=== PATIENT | female | born 1955 | race Two or more races ===

== ENCOUNTER 2024-02-05 09:27 | Inpatient (IN) | payer OTHER ==
[~2024-02-05] VITALS: Ht 180.3 cm; Wt 52.2 kg
[2024-02-05] MEDS ORDERED: PIPERACILLIN/TAZOBACTAM SODIUM 3.375 GM VIAL IV ONE (10:15)
[2024-02-05] MEDS ORDERED: 0.9 % SODIUM CHLORIDE 1,000 ML IV SCH ×2 (10:15→18:00)
[2024-02-05] MEDS ORDERED: CARVEDILOL25 M1 (10:20)
[2024-02-05] MEDS ORDERED: HYDRALAZINE HCL50 MG (10:21)
[2024-02-05] MEDS ORDERED: FOLIC ACID1 MG (10:21)
[2024-02-05] MEDS ORDERED: IRBESARTAN300 MG (10:21)
[2024-02-05] MEDS ORDERED: FUROSEMIDE20 MG (10:21)
[2024-02-05] MEDS ORDERED: ROSUVASTATIN CA10 MG (10:21)
[2024-02-05] MEDS ORDERED: FAMOTIDINE40 MG (10:21)
[2024-02-05] MEDS ORDERED: SPIRONOLACTONE25 MG (10:21)
--- NOTE | 2024-02-05 10:22 | NUR ---
PTE ALERTA STEPHANY AL MOMENTO NO VERBALIZA EMT REFIERE QUE LOS ACTIVARON POR "DESORIENTASION", "UTI" Y ULCERAS SACRALES. PTE VIENE CON [place] DEL [place]. EMT REFIEREN QUE PTE VIENE KAY SIN PERSONAL DEL HOGAR Y MARLYN FAMILIARES LE VERBALIZARON QUE NO VIENEN A ADAM A LA PTE. AL MOMENTO DE UBICAR A LA PTE, SE OBSERVA ULCERA SACRAL ESTADIO 4 CON OLOR FETIDO. PTE CON AMPUTACION BILATERAL.
[2024-02-05] MEDS ORDERED: ACETAMINOPHEN 650 MG SUPP.RECT RECTAL ONE (10:45)
[2024-02-05 10:46] LABS: HEMATOCRIT 28.1 % (36.0-45.00); MEAN CELL VOLUME 74.7 fL (80.00-100.00); MEAN CORPUSCULAR HEMOGLOBIN 23.9 pg (27.00-32.0); PLATELET COUNT 450 K/uL (150-450); RED BLOOD COUNT 3.76 M/uL (4.00-6.00); RED CELL DISTRIBUTION WIDTH 15.9 % (11.5-14.5)
[2024-02-05 10:48] LABS: ERYTHROCYTE SEDIMENTATION RATE > 130 mm/hr
[2024-02-05 10:58] LABS: INR 1.14; PARTIAL THROMBOPLASTIN TIME 26.8 SECONDS (22.0-34.0); PROTHROMBIN TIME 11.9 SECONDS (9.0-11.5)
[2024-02-05 11:04] LABS: ALBUMIN 1.5 gm/dL (3.4-5.0); BILIRUBIN TOTAL 0.32 mg/dL (0.3-1.2); CALCIUM 9.5 mg/dL (8.5-10.1); CREATININE SERUM 1.25 mg/dL (0.55-1.02); GFR 42.75; GLOBULINA 5.6 G/DL (2.4-3.5); POTASSIUM 4.61 mEq/L (3.5-5.1); TOTAL PROTEIN 7.1 gm/dL (6.4-8.2)
[2024-02-05 11:13] LABS: C-REACTIVE PROTEIN 18.3 MG/DL (0.00-0.29)
--- NOTE | 2024-02-05 11:42 | NUR ---
FEMINA ALERTA CON POCA ARTICULACION VERBAL SE UBICA EN UNIDAD DE ICU-2 CAMA #3 Y SE CONECTA A MONITOR CARDIACO Y OXIMETRIA DE PULSO. SE OBSERVA EXTREMIDAD SUPERIOR DERECHA CON EDEMA. VENOPUNCION DE AMBULANCIA PATENTE BRANDO DE EDEMA Y ERITEMA. SE COLECTAN MUESTRAS DE LABORATORIO BAJO MEDIDAS ASEPTICAS. ABDOMEN DEPRESIBLE AL TACTO CON PERISTALSIS PRESENTE. PTE CON ULCERA SACRAL ESTADIO 4, ULCERA EN CADERA Y EN GLUTEO. PERSONAL DE SKIN TEAM JUNTO CON EL DR BEJARANO LEE EVALUAN ULCERAS Y REALIZAN LIMPIEZA Y CUIDADO DE LAS MISMAS. COLOCAN VENDAJES LIMPIOS Y SECOS. SE REALIZA CAMBIO DE SONDA URINARIA CASEY ORDEN MEDICA SIGUIENDO MEDIDAS ESTERILES. PTE CON AMPUTACION BILATERAL EN EXTREMIDADES INFERIORES. SE REALIZA EKG Y SE PRESENTA A DR [place]. SE ADMINISTRAN MEDICAMENTOS CASEY ORDEN MEDICA. SE NOTIFICAN ABGS.
[2024-02-05] MEDS ORDERED: NOREPINEPHRINE BITARTRATE 8 MG in DEXTROSE 5 % IN WATER 250 ML IV SCH (11:45)
[2024-02-05 12:41] LABS: ABG PH 7.446 (7.35-7.45); ABG PO2 69.7 mmHg (80-100); BICARBONATE 20.9 mmol/l (23-25); SaO2 94.4 %; Tco2 21.8 mmol/l
[2024-02-05 13:25] LABS: URINE APPEARANCE Turbid; URINE BILIRRUBIN Negative (NEGATIVE); URINE BLOOD Trace; URINE COLOR Dark Yellow; URINE GLUCOSE Negative (NEGATIVE); URINE LEUKOCYTE Large; URINE NITRATE Negative
[2024-02-05 13:29] LABS: URINE EPITHELIAL CELLS 69.2 uL (0.0-38.8); URINE WBC 1526.1 uL (0.0-23.2)
[2024-02-05 13:42] LABS: URINE BACTERIA > 9821.5 uL (0.0-1933); URINE PROTEIN 100 (NEGATIVE)
[2024-02-05 13:44] LABS: URINE CRYSTALS FEW /HPF
[2024-02-05 15:12] LABS: allen test SATISFACTORY; o2 21 %; puncture site RADIAL LEFT
--- NOTE | 2024-02-05 15:19 | NUR ---
SE RECIBE PTE ALERTA, ORIENTADA EN PERSONA. EN CAMA BAJA CON BARANDAS ELEVADAS POR SEGURIDAD. CONECTADA A MONTIOR CARDIACO Y OXIMETRIA DE PULSO CONTINUA. CANALIZACION #20, PATENTE, BRANDO DE EDEMA Y ERITEMA, RECIBIENDO IV FLUIDS Y LEVOPHED 8MG/250ML A 20 MLS/HR. PTE CON RONDON DRENANDO A GRAVEDAD, ORINA AMRILLO INTENSO. PTE CON ULCERA SACRAL Y EN AMBAS CADERAS CON VENDAJES POR SKIN TEAM.
[2024-02-05] MEDS ORDERED: 0.9 % SODIUM CHLORIDE 1,000 ML IV ONE (17:45)
[2024-02-05] MEDS ORDERED: MEROPENEM 500 MG/VIAL VIAL IV SCH (17:45)
[2024-02-05] MEDS ORDERED: VANCOMYCIN HCL 1,000 MG VIAL IV SCH (17:46)
[2024-02-05] MEDS ORDERED: ONDANSETRON HCL 4 MG in 0.9 % SODIUM CHLORIDE 50 ML IV PRN (18:00)
[2024-02-05] MEDS ORDERED: ACETAMINOPHEN 500 MG GEL..CAP PO PRN (18:00)
[2024-02-05 18:51] LABS: MAGNESIUM 2.2 mg/dL (1.8-2.4); PHOSPHOROUS 4.4 mg/dL (2.5-4.9)
[2024-02-06] MEDS ORDERED: ATORVASTATIN CALCIUM 40 MG TABLET PO SCH (09:00)
[2024-02-06] MEDS ORDERED: FAMOTIDINE/PF 20 MG in 0.9 % SODIUM CHLORIDE 8 ML IV PUSH SCH (09:00)
[2024-02-06] MEDS ORDERED: ENOXAPARIN SODIUM 40 MG/0.4 ML SYRINGE SUBCUTANEO SCH (09:00)
[2024-02-06] MEDS ORDERED: NOREPINEPHRINE BITARTRATE 1 MG/ML AMPUL IV ONE (13:26)
[2024-02-06] MEDS ORDERED: MULTIVIT INFUSN,ADULT 4,VIT K 10 ML VIAL IV SCH (17:00)
[2024-02-06] MEDS ORDERED: AMINO ACIDS/PROTEIN HYDROLYS 30 ML BLIST.PACK PO SCH (17:00)
[2024-02-06] MEDS ORDERED: SOD FERRIC GLUC COMPLX/SUCROSE 62.5 MG in 0.9 % SODIUM CHLORIDE 50 ML IV SCH (17:00)
[2024-02-06] MEDS ORDERED: ALBUMIN HUMAN 100 ML VIAL IV SCH (21:00)
[2024-02-07 05:50] LABS: URINE APPEARANCE Turbid; URINE BILIRRUBIN Negative (NEGATIVE); URINE BLOOD Moderate; URINE COLOR Yellow; URINE GLUCOSE Negative (NEGATIVE); URINE LEUKOCYTE Large; URINE NITRATE Negative
[2024-02-07 06:23] LABS: URINE EPITHELIAL CELLS > 201.7 uL (0.0-38.8); URINE PROTEIN 100 (NEGATIVE); URINE WBC > 5548.3 uL (0.0-23.2)
[2024-02-07 06:24] LABS: URINE YEAST MODERATE /hpf
[2024-02-07 08:38] LABS: ALBUMIN 2.2 gm/dL (3.4-5.0); BILIRUBIN TOTAL 0.35 mg/dL (0.3-1.2); CREATININE SERUM 1.05 mg/dL (0.55-1.02); GFR 52.27; GLOBULINA 3.6 G/DL (2.4-3.5); MAGNESIUM 2.1 mg/dL (1.8-2.4); PHOSPHOROUS 4.5 mg/dL (2.5-4.9); TOTAL PROTEIN 5.8 gm/dL (6.4-8.2)
[2024-02-07 15:12] LABS: MEAN CORPUSCULAR HGB CONC 32.2 g/dl (32.0-36.0); PLATELET COUNT 232 K/uL (150-450); RED BLOOD COUNT 2.49 M/uL (4.00-6.00); RED CELL DISTRIBUTION WIDTH 15.6 % (11.5-14.5)
[2024-02-07 15:14] LABS: MEAN CORPUSCULAR HEMOGLOBIN 24.4 pg (27.00-32.0)
[2024-02-07] MEDS ORDERED: LOSARTAN POTASSIUM 50 MG TABLET PO SCH (15:18)
[2024-02-07 15:20] LABS: HEMATOCRIT 18.9 % (36.0-45.00)
[2024-02-07 15:21] LABS: HEMOGLOBIN 6.1 g/dL (12.0-15.00)
[2024-02-07] MEDS ORDERED: FAMOtidine 40 MG TABLET PO SCH (21:00)
[2024-02-07] MEDS ORDERED: MORPHINE SULFATE 4 MG/ML VIAL IV ONE (21:45)
[2024-02-08] MEDS ORDERED: RIVAROXABAN 10 MG TAB PO SCH (09:00)
[2024-02-08] MEDS ORDERED: INSULIN LISPRO 1,000 UNIT/10 ML UNITS SUBCUTANEO PRN (13:30)
[2024-02-08] MEDS ORDERED: SODIUM CHLORIDE 0.45 % 1,000 ML IV SCH (13:30)
[2024-02-08] MEDS ORDERED: DEXTROSE 50 % IN WATER 0.5 G/ML VIAL IV PRN (13:30)
[2024-02-08] MEDS ORDERED: hydrALAZINE HCL 20 MG VIAL IV PRN (13:45)
[2024-02-08] MEDS ORDERED: FUROsemide 20 MG/2 ML VIAL IV NR (14:15)
[2024-02-08] MEDS ORDERED: AZTREONAM 2,000 MG VIAL IV SCH (17:00)
[2024-02-08] MEDS ORDERED: CARVEDILOL 3.125 MG TABLET PO SCH (17:00)
[2024-02-08] MEDS ORDERED: Pregabalin 50 MG CAPSULE PO SCH (17:00)
[2024-02-08] MEDS ORDERED: CEFTAZIDIME/AVIBACTAM 1.25GM/100ML NSS PB IV SCH (17:00)
[2024-02-08] MEDS ORDERED: IRBESARTAN 300 MG TABLET PO SCH (17:00)
[2024-02-08] MEDS ORDERED: MEROPENEM 500 MG/VIAL VIAL IV SCH (18:00)
[2024-02-08 19:14] LABS: HEMOGLOBIN 10.2 g/dL (12.0-15.00); MEAN CELL VOLUME 77.2 fL (80.00-100.00); MEAN CORPUSCULAR HEMOGLOBIN 25.4 pg (27.00-32.0); MEAN CORPUSCULAR HGB CONC 32.9 g/dl (32.0-36.0); PLATELET COUNT 291 K/uL (150-450); RED BLOOD COUNT 4.02 M/uL (4.00-6.00)
[2024-02-08] MEDS ORDERED: POLYETHYLENE GLYCOL 3350 17 GM BLIST.PACK PO SCH (21:00)
[2024-02-08] MEDS ORDERED: INSULIN GLARGINE,HUM.REC.ANLOG 1,000 UNITS/10 ML UNITS SUBCUTANEO SCH (21:00)
[2024-02-09] MEDS ORDERED: FUROsemide 20 MG/2 ML VIAL IV SCH (09:00)
[2024-02-09] MEDS ORDERED: SODIUM CHLORIDE 0.45 % 1,000 ML IV SCH (14:00)
[2024-02-09 14:13] LABS: ABG PH 7.351 (7.35-7.45); ABG PO2 87.5 mmHg (80-100); ABG pCO2 32.2 mmHg (35-45); BASE EXCESS -6.9 mmol/l; BICARBONATE 17.4 mmol/l (23-25); SaO2 95.9 %; Tco2 18.4 mmol/l
[2024-02-09 14:14] LABS: allen test SATISFACTORY; o2 21 %; puncture site RADIAL RIGHT
[2024-02-09] MEDS ORDERED: INSULIN GLARGINE,HUM.REC.ANLOG 1,000 UNITS/10 ML UNITS SUBCUTANEO SCH (21:00)
[2024-02-10 07:35] LABS: HEMATOCRIT 31.4 % (36.0-45.00); HEMOGLOBIN 10.2 g/dL (12.0-15.00); MEAN CELL VOLUME 76.9 fL (80.00-100.00); MEAN CORPUSCULAR HGB CONC 32.4 g/dl (32.0-36.0); PLATELET COUNT 286 K/uL (150-450); RED BLOOD COUNT 4.08 M/uL (4.00-6.00); RED CELL DISTRIBUTION WIDTH 16.6 % (11.5-14.5)
[2024-02-10 08:10] LABS: ALBUMIN 3.1 gm/dL (3.4-5.0); BILIRUBIN TOTAL 0.44 mg/dL (0.3-1.2); CALCIUM 8.7 mg/dL (8.5-10.1); CREATININE SERUM 1.53 mg/dL (0.55-1.02); GFR 33.85; GLOBULINA 3.3 G/DL (2.4-3.5); POTASSIUM 4.83 mEq/L (3.5-5.1); TOTAL PROTEIN 6.4 gm/dL (6.4-8.2)
[2024-02-10] MEDS ORDERED: ISOSORBIDE MONONITRATE 30 MG TABLET PO NR (09:30)
[2024-02-10] MEDS ORDERED: hydrALAZINE HCL 20 MG VIAL IV SCH (12:00)
[2024-02-10] MEDS ORDERED: CARVEDILOL 3.125 MG TABLET PO SCH (17:00)
[2024-02-10] MEDS ORDERED: NIFEDIPINE 30 MG TAB.SA.OSM PO SCH (17:00)
[2024-02-11] MEDS ORDERED: ISOSORBIDE MONONITRATE 30 MG TABLET PO SCH (09:00)
[2024-02-11] MEDS ORDERED: Cyanocobalamin/Mecobalamin 1 TAB.SL SL SCH (09:00)
[2024-02-11] MEDS ORDERED: SOD FERRIC GLUC COMPLX/SUCROSE 125 MG in 0.9 % SODIUM CHLORIDE 100 ML IV SCH (09:00)
[2024-02-11 13:11] LABS: a:g ratio 1.1 (0.7-1.7); alpha 1 g 0.3 g/dL (0.0-0.4); alpha 2 0.9 g/dL (0.4-1.0); beta g 0.7 g/dL (0.7-1.3); gamma g 1.2 g/dL (0.4-1.8); kappa lambda r 1.03 (0.26-1.65); kappa light 132.7 mg/L (3.3-19.4); m spike Not Observed g/dL (Not Observed); prot total 6.3 g/dL (6.0-8.5)
[2024-02-11 18:33] LABS: CALCIUM 8.7 mg/dL (8.5-10.1); CREATININE SERUM 1.76 mg/dL (0.55-1.02); GFR 28.8; POTASSIUM 5.24 mEq/L (3.5-5.1)
[2024-02-12 07:09] LABS: BETA-2-MICROGLOBULINA 11.1 mg/L (0.6-2.4)
[2024-02-12 07:51] LABS: HEMATOCRIT 32.5 % (36.0-45.00); HEMOGLOBIN 10.5 g/dL (12.0-15.00); MEAN CELL VOLUME 77.6 fL (80.00-100.00); MEAN CORPUSCULAR HEMOGLOBIN 25.1 pg (27.00-32.0); MEAN CORPUSCULAR HGB CONC 32.3 g/dl (32.0-36.0); PLATELET COUNT 244 K/uL (150-450); RED BLOOD COUNT 4.18 M/uL (4.00-6.00); RED CELL DISTRIBUTION WIDTH 17.2 % (11.5-14.5)
[2024-02-12 15:07] LABS: alb 49.8 % (.); alp 2 4.9 % (.); alph 2.7 % (.); bet 24.8 % (.); gamma 17.8 % (.); prote 183.4 mg/dL (Not Estab.)
[2024-02-12] MEDS ORDERED: INSULIN GLARGINE,HUM.REC.ANLOG 1,000 UNITS/10 ML UNITS SUBCUTANEO SCH (21:00)
[2024-02-13 14:27] LABS: HEMATOCRIT 28.9 % (36.0-45.00); HEMOGLOBIN 9.4 g/dL (12.0-15.00); MEAN CELL VOLUME 78.8 fL (80.00-100.00); MEAN CORPUSCULAR HEMOGLOBIN 25.7 pg (27.00-32.0); MEAN CORPUSCULAR HGB CONC 32.6 g/dl (32.0-36.0); PLATELET COUNT 200 K/uL (150-450); RED BLOOD COUNT 3.67 M/uL (4.00-6.00); RED CELL DISTRIBUTION WIDTH 16.9 % (11.5-14.5)
[2024-02-13 14:57] LABS: ALBUMIN 1.7 gm/dL (3.4-5.0); BILIRUBIN TOTAL 0.22 mg/dL (0.3-1.2); CALCIUM 7.9 mg/dL (8.5-10.1); CREATININE SERUM 2.23 mg/dL (0.55-1.02); GFR 21.92; GLOBULINA 3.5 G/DL (2.4-3.5); POTASSIUM 5.29 mEq/L (3.5-5.1); TOTAL PROTEIN 5.2 gm/dL (6.4-8.2)
[2024-02-13] MEDS ORDERED: Pregabalin 50 MG CAPSULE PO SCH (17:00)
[2024-02-14 07:27] LABS: ALBUMIN 1.7 gm/dL (3.4-5.0); CALCIUM 7.4 mg/dL (8.5-10.1); CREATININE SERUM 1.83 mg/dL (0.55-1.02); GFR 27.53; PHOSPHOROUS 3.3 mg/dL (2.5-4.9); POTASSIUM 5.13 mEq/L (3.5-5.1)
[2024-02-14] MEDS ORDERED: 0.9 % SODIUM CHLORIDE 1,000 ML IV SCH (10:00)
[2024-02-15] MEDS ORDERED: VANCOMYCIN HCL 5 MG/ML REDILUIDO IV SCH (09:30)
[2024-02-15 09:38] LABS: HEMOGLOBIN 9.2 g/dL (12.0-15.00); MEAN CELL VOLUME 78.1 fL (80.00-100.00); MEAN CORPUSCULAR HEMOGLOBIN 25.6 pg (27.00-32.0); MEAN CORPUSCULAR HGB CONC 32.8 g/dl (32.0-36.0); PLATELET COUNT 144 K/uL (150-450); RED BLOOD COUNT 3.58 M/uL (4.00-6.00); RED CELL DISTRIBUTION WIDTH 17.6 % (11.5-14.5)
[2024-02-15 09:58] LABS: ALBUMIN 1.7 gm/dL (3.4-5.0); CALCIUM 7.3 mg/dL (8.5-10.1); CREATININE SERUM 1.68 mg/dL (0.55-1.02); GFR 30.39; PHOSPHOROUS 3.3 mg/dL (2.5-4.9); POTASSIUM 5.71 mEq/L (3.5-5.1)
[2024-02-15] MEDS ORDERED: AMINO ACIDS/PROTEIN HYDROLYS 30 ML BLIST.PACK PO SCH (17:00)
[2024-02-16] MEDS ORDERED: NOREPINEPHRINE BITARTRATE 1 MG/ML AMPUL IV STA (05:31)
[2024-02-16] MEDS ORDERED: NOREPINEPHRINE BITARTRATE 8 MG in DEXTROSE 5 % IN WATER 250 ML IV SCH (13:00)
[2024-02-16] MEDS ORDERED: SODIUM BICARBONATE 1 MEQ/ML DISP.SYRIN 50ML IV SCH (21:47)
[2024-02-17 07:06] LABS: HEMOGLOBIN 10.1 g/dL (12.0-15.00); MEAN CELL VOLUME 78.8 fL (80.00-100.00); MEAN CORPUSCULAR HEMOGLOBIN 24.8 pg (27.00-32.0); MEAN CORPUSCULAR HGB CONC 31.5 g/dl (32.0-36.0); RED BLOOD COUNT 4.06 M/uL (4.00-6.00); RED CELL DISTRIBUTION WIDTH 18.6 % (11.5-14.5)
[2024-02-17 07:30] LABS: ALBUMIN 1.7 gm/dL (3.4-5.0); CALCIUM 7.4 mg/dL (8.5-10.1); CREATININE SERUM 1.55 mg/dL (0.55-1.02); GFR 33.35; PHOSPHOROUS 4.6 mg/dL (2.5-4.9); POTASSIUM 5.62 mEq/L (3.5-5.1)
[2024-02-17 08:35] LABS: PLATELET COUNT 108 K/uL (150-450)
[2024-02-17] MEDS ORDERED: SODIUM BICARBONATE 50MEQ/50ML VIAL IV SCH (09:00)
[2024-02-17] MEDS ORDERED: SODIUM BICARBONATE 200 MEQ in DEXTROSE 5 % IN WATER 1,000 ML IV SCH ×2 (10:15→12:15)
[2024-02-17] MEDS ORDERED: RINGERS SOLUTION,LACTATED 500 ML IV ONE (10:30)
[2024-02-17] MEDS ORDERED: HYDROCORTISONE SODIUM SUCC/PF 50 MG/ML ML IV SCH (13:00)
[2024-02-17 13:01] LABS: ABG PH 7.104 (7.35-7.45); ABG PO2 91.5 mmHg (80-100); ABG pCO2 43.5 mmHg (35-45); BASE EXCESS -15.9 mmol/l; BICARBONATE 13.3 mmol/l (23-25); SaO2 91.6 %
[2024-02-17 13:02] LABS: Tco2 14.6 mmol/l; o2 100 %
[2024-02-17 13:03] LABS: allen test SATISFACTORY; puncture site RADIAL RIGHT
[2024-02-17 14:58] LABS: ABG PO2 66.2 mmHg (80-100); BASE EXCESS -14.8 mmol/l; BICARBONATE 13.6 mmol/l (23-25); SaO2 83.1 %; Tco2 14.9 mmol/l; allen test SATISFACTORY; o2 35 %; puncture site RADIAL RIGHT
[2024-02-17] MEDS ORDERED: CITRIC ACID/SODIUM CITRATE 30 ML BLIST.PACK PO SCH (17:00)
[2024-02-17] MEDS ORDERED: SODIUM POLYSTYRENE SULFONATE 30GM/8 TSP PO SCH (17:00)
[2024-02-17] MEDS ORDERED: ANIDULAFUNGIN 100 MG VIAL IV NR (17:45)
[2024-02-17] MEDS ORDERED: CEFIDEROCOL SULFATE TOSYLATE 1 GM VIAL IV SCH (21:00)
[2024-02-17] MEDS ORDERED: PANTOPRAZOLE SODIUM 40 MG/VIAL VIAL IV PUSH SCH (21:00)
[2024-02-18 07:37] LABS: PH,URINE 5.5; URINE APPEARANCE TURBID; URINE BILIRRUBIN NEGATIVE (NEGATIVE); URINE BLOOD LARGE; URINE COLOR YELLOW; URINE GLUCOSE NEGATIVE (NEGATIVE)
[2024-02-18 07:38] LABS: URINE LEUKOCYTE MODERATE; URINE NITRATE NEGATIVE; URINE PROTEIN 100 (NEGATIVE); URINE UROBILINOGEN 0.1 E.U./dl
[2024-02-18 07:40] LABS: URINE BACTERIA MANY; URINE CRYSTALS FEW /HPF; URINE EPITHELIAL CELLS 0-4 /HPF; URINE WBC LOADED /hpf
[2024-02-18 09:00] LABS: ALBUMIN 1.4 gm/dL (3.4-5.0); BILIRUBIN TOTAL 0.45 mg/dL (0.3-1.2); CALCIUM 6.9 mg/dL (8.5-10.1); CREATININE SERUM 1.62 mg/dL (0.55-1.02); GFR 31.69; GLOBULINA 3.8 G/DL (2.4-3.5); POTASSIUM 4.02 mEq/L (3.5-5.1); TOTAL PROTEIN 5.2 gm/dL (6.4-8.2)
[2024-02-18] MEDS ORDERED: SOD FERRIC GLUC COMPLX/SUCROSE 62.5 MG in 0.9 % SODIUM CHLORIDE 50 ML IV SCH (09:00)
[2024-02-18 09:01] LABS: HEMATOCRIT 27.5 % (36.0-45.00); MEAN CELL VOLUME 77.8 fL (80.00-100.00); MEAN CORPUSCULAR HEMOGLOBIN 25.4 pg (27.00-32.0); MEAN CORPUSCULAR HGB CONC 32.7 g/dl (32.0-36.0); RED BLOOD COUNT 3.54 M/uL (4.00-6.00)
[2024-02-18 09:03] LABS: PLATELET COUNT 67 K/uL (150-450)
[2024-02-18 13:13] LABS: ABG PH 7.275 (7.35-7.45); ABG pCO2 35.8 mmHg (35-45); BASE EXCESS -9.6 mmol/l; BICARBONATE 16.3 mmol/l (23-25); SaO2 98.1 %; Tco2 17.4 mmol/l
[2024-02-18 13:15] LABS: allen test SATISFACTORY; o2 50 %; puncture site RADIAL RIGHT
[2024-02-18 13:42] LABS: ob POSITIVE (NEGATIVE)
[2024-02-18] MEDS ORDERED: ANIDULAFUNGIN 100 MG VIAL IV SCH (17:00)
== END 2024-02-18 19:39 | disposition expired | DRG 871 ==
LOC: ER 09:27 → ICU-2 18:09 → SEC-K 02-06 08:52 → MEDI 02-06 10:26 → SEC-K 02-06 12:23 → SURH 02-06 14:53 → SURG 02-08 04:06
PROVIDERS: General Practice; Internal Medicine; Internal Medicine Infectious Disease; Internal Medicine Nephrology; ADMIT Internal Medicine; ATTEND Internal Medicine
PROC: BR2CZZZ Computerized Tomography (CT Scan) of Pelvis (ICD-10-PCS; principal; 2024-02-05)
PROC: BW21ZZZ Computerized Tomography (CT Scan) of Abdomen and Pelvis (ICD-10-PCS; 2024-02-06)
PROC: B246ZZZ Ultrasonography of Right and Left Heart (ICD-10-PCS; 2024-02-06)
PROC: 4A12X4Z Monitoring of Cardiac Electrical Activity, External Approach (ICD-10-PCS; 2024-02-06)
PROC: 02HV33Z Insertion of Infusion Device into Superior Vena Cava, Percutaneous Approach (ICD-10-PCS; 2024-02-07)
PROC: 0JB73ZZ Excision of Back Subcutaneous Tissue and Fascia, Percutaneous Approach (ICD-10-PCS; 2024-02-07)
PROC: 30233N1 Transfusion of Nonautologous Red Blood Cells into Peripheral Vein, Percutaneous Approach (ICD-10-PCS; 2024-02-08)
PROC: BT4JZZZ Ultrasonography of Kidneys and Bladder (ICD-10-PCS; 2024-02-12)
PROC: 5A09457 Assistance with Respiratory Ventilation, 24-96 Consecutive Hours, Continuous Positive Airway Pressure (ICD-10-PCS; 2024-02-18)
DX: A41.9 Sepsis, unspecified organism (principal); L89.154 Pressure ulcer of sacral region, stage 4; R65.21 Severe sepsis with septic shock; N39.0 Urinary tract infection, site not specified; N17.8 Other acute kidney failure; I13.0 Hypertensive heart and chronic kidney disease with heart failure and stage 1 through stage 4 chronic kidney disease, or unspecified chronic kidney disease; M46.28 Osteomyelitis of vertebra, sacral and sacrococcygeal region; B96.1 Klebsiella pneumoniae [K. pneumoniae] as the cause of diseases classified elsewhere; B96.29 Other Escherichia coli [E. coli] as the cause of diseases classified elsewhere; B96.4 Proteus (mirabilis) (morganii) as the cause of diseases classified elsewhere; L08.89 Other specified local infections of the skin and subcutaneous tissue; B95.2 Enterococcus as the cause of diseases classified elsewhere; B96.6 Bacteroides fragilis [B. fragilis] as the cause of diseases classified elsewhere; E11.22 Type 2 diabetes mellitus with diabetic chronic kidney disease; N18.9 Chronic kidney disease, unspecified; I50.9 Heart failure, unspecified; Z79.4 Long term (current) use of insulin; E78.49 Other hyperlipidemia
CPT/HCPCS: 72195